=== PATIENT | male | born 1945 | race Caucasian/White ===

== ENCOUNTER 2018-08-10 13:00 | Emergency (ER) | payer MEDICARE, OTHER ==
[~2018-08-10] VITALS: Ht 165.1 cm; Wt 79.2 kg
[2018-08-10 13:04] VITALS: BP 125/64; PULSE 52; RESP 22; Ht 165.1 cm; Wt 79.2 kg
--- NOTE | 2018-08-10 15:12 | ERD ---
ER Documentation Chief Complaint Chief Complaint RT ear decreased hearing [id number] HPI 73-year-old male presents with complaint of decreased hearing to the right ear x2 months. Patient denies any trauma to the ear. Notes that hearing has gradually been decreasing over time denies sudden onset. Denies headache, vo miting, nausea, or ringing in ears. Patient denies any pain. Positive history of diabetes patient is a non-smoker no other medical conditions. ROS All systems reviewed and are negative except as per history of present illness. Allergies Allergies: Coded Allergies: No Known Allergy (Unverified , 08/10/18) PMhx/Soc Medical and Surgical Hx: pt denies Medical Hx (Diabetes), pt denies Surgical Hx Hx Neurological Disorder: No Hx Respiratory Disorders: No Hx Cardiac Disorders: No Hx Psychiatric Problems: No Hx Miscellaneous Medical Probl: No Hx Alcohol Use: No Hx Substance Use: No Hx Tobacco Use: No Smoking Status: Never smoker FmHx Family History: diabetes, coronary disease, other Physical Exam Vitals Vital Signs Date Temp Pulse Resp B/P (MAP) Pulse Ox O2 O2 Flow FiO2 Time Delivery Rate 08/10/18 98.6 52 22 125/64 97 13:04 (84) Physical Exam Const: No acute distress Head: Atraumatic Eyes: Normal Conjunctiva ENT: Normal External Ears, Nose and Mouth. No visible foreign body or cerumen impaction of the external auditory canal. Right ear with visible scarring to the TM. No visible erythema or bulging of the TMs bilaterally. Neck: Full range of motion. No meningismus. Resp: Clear to auscultation bilaterally Cardio: Regular rate and rhythm, no murmurs Abd: Soft, non tender, non distended. Normal bowel sounds Skin: No petechiae or rashes Back: No midline or flank tenderness Ext: No cyanosis, or edema Neur: Awake and alert Psych: Normal Mood and Affect Procedures/MDM This is a 73-year-old male who presents with complaints of decreased hearing x2 months. Physical exam findings unremarkable. Counseled patient regarding need for follow-up with PCP and/or ENT for possible custom hearing aids. Patient given referral to community health clinics in the area for follow-up with the PCP as patient does not have a PCP at this time. Patient is in no acute distress, no emergent or concerning symptoms. No focal neuro deficits. Patient stable for discharge at this time advised to return to the ED if pain develops, headache, or dizziness. Patient expressed verbal understanding and agreement to treatment plan. All questions addressed and answered. Departure Diagnosis: Primary Impression: Presbycusis of right ear Contralateral hearing status: unrestricted hearing on contralateral side Qualified Codes: H91.11 - Presbycusis, right ear Condition: Good Referrals: [facility] YOU HAVE RECEIVED A MEDICAL SCREENING EXAM AND THE RESULTS INDICATE THAT YOU DO NOT HAVE A CONDITION THAT REQUIRES URGENT TREATMENT IN THE EMERGENCY DEPARTMENT. FURTHER EVALUATION AND TREATMENT OF YOUR CONDITION CAN WAIT UNTIL YOU ARE SEEN IN YOUR DOCTORS OFFICE WITHIN THE NEXT 1-2 DAYS. IT IS YOUR RESPONSIBILITY TO MAKE AN APPOINTMENT FOR FOLOW-UP CARE. IF YOU HAVE A PRIMARY DOCTOR --you should call your primary doctor and schedule an appointment IF YOU DO NOT HAVE A PRIMARY DOCTOR YOU CAN CALL OUR PHYSICIAN REFERRAL HOTLINE AT IF YOU CAN NOT AFFORD TO SEE A PHYSICIAN YOU CAN CHOSE FROM THE FOLLOWING [facility] [address] [facility]. [facility] [address] [facility] [facility] [address] [facility] [facility] [address] [facility]. [facility] [address] [facility]. [facility]. [address] Additional Instructions: You have been diagnosed with hearing loss. It is likely you will require hearing aids. Please follow-up with your primary care physician for referral to ENT for custom fitted hearing aids. Return to the ED at the onset of any new or worsening pain. Comments Patient evaluated with RHEA, agree with assessment and plan. SADIE Muhammad PA-C August 10, 2018 15:11 WILLIAM GOMEZ DO August 14, 2018 15:41
== END 2018-08-10 15:06 | disposition left against medical advice (07) ==
LOC: FTE 13:00
DX: H91.11 Presbycusis, right ear (principal)
CPT/HCPCS: 99282